=== PATIENT | female | born 1990 | race Caucasian/White ===

== ENCOUNTER 2018-06-01 19:40 | Emergency (ER) | END 2018-06-01 22:53 | disposition home or self-care (01) ==

== ENCOUNTER 2018-11-08 17:19 | Emergency (ER) | payer OTHER ==
[~2018-11-08] VITALS: Ht 157.5 cm; Wt 99.3 kg
[~2018-11-08 17:19] MED LIST: MELO15TA30 PO; TRAM50TA2 PO
[2018-11-08 17:37] VITALS: Ht 157.5 cm; Wt 99.3 kg
[2018-11-08] MEDS ORDERED: KETOROLAC 30 MG INJ IM STA ×2 (19:33→21:19)
[2018-11-08] MEDS ORDERED: ACET-141 PO (21:35)
[2018-11-08] MEDS ORDERED: IBUP-1542 PO (21:35)
--- NOTE | 2018-11-08 21:38 | ERD ---
ER Documentation Chief Complaint Chief Complaint B/L LEG PAIN X 4 DAYS , NO TRAUMA HPI 28-year-old female presents for bilateral leg pain times 4 days. She states that she has had these symptoms for about a year however is worsened for the last 4 days. The knee pain is diffuse. Rated 9 out of 10. States it is co nstant. She states it is affecting her gait a little bit. Pain is worse with walking. Denies any recent infections or fevers. ROS All systems reviewed and are negative except as per history of present illness. Medications Home Meds Active Scripts Acetaminophen* (Acetaminophen*) 500 MG Extra Strength Tablet, 500 MG PO Q4H PRN for PAIN AND OR ELEVATED TEMP, #30 TAB Prov:CAMMY LEE DO 11/08/18 Ibuprofen* (Motrin*) 600 Mg Tab, 600 MG PO Q6H PRN for PAIN, #30 TAB Prov:CAMMY LEE 11/08/18 Reported Medications Meloxicam* (Mobic*) 15 Mg Tablet, 15 MG PO DAILY 12/16/13 Tramadol HCl (Tramadol HCl) 50MG Tab, 50 MG PO Q6 PRN for PAIN, TAB 12/16/13 Allergies Allergies: Coded Allergies: No Known Allergy (Unverified , 10/18/14) PMhx/Soc Medical and Surgical Hx: pt denies Medical Hx, pt denies Surgical Hx History of Surgery: No Anesthesia Reaction: No Hx Neurological Disorder: No Hx Respiratory Disorders: No Hx Cardiac Disorders: No Hx Psychiatric Problems: No Hx Miscellaneous Medical Probl: No Hx Alcohol Use: No Hx Substance Use: No Hx Tobacco Use: No Smoking Status: Never smoker Physical Exam Vitals Vital Signs Date Temp Pulse Resp B/P (MAP) Pulse Ox O2 O2 Flow FiO2 Time Delivery Rate 11/08/18 98.9 85 18 108/68 99 Room Air 21:47 (81) 11/08/18 98.6 88 16 120/61 98 17:37 (80) Physical Exam Const: No acute distress Resp: Clear to auscultation bilaterally Cardio: Regular rate and rhythm, no murmurs, bilateral radial and dorsalis pedis pulses intact Skin: No petechiae or rashes Back: No midline or flank tenderness Ext: No cyanosis, or edema, is diffuse bilateral knee tenderness to palpation, 5 out of 5 muscle strength bilateral upper and lower extremities Neur: Awake and alert, bilateral upper and lower extremity sensation intact Psych: Normal Mood and Affect Results 24 hrs Laboratory Tests Test 11/08/18 19:46 11/08/18 21:01 POC Beta HCG, Qualitative POSITIVE NEGATIVE Urine Test NEGATIVE Current Medications Medications Dose Sig/Ryley Start Time Status Last (Trade) Ordered Route PRN Stop Time Admin Dose Reason Admin Ketorolac 30 mg ONCE STAT 11/08/18 DC Tromethamine IM 19:33 11/08/18 (Toradol) 19:34 Ketorolac 30 mg ONCE STAT 11/08/18 DC 11/08/18 Tromethamine IM 21:19 11/08/18 21:28 (Toradol) 21:21 Procedures/MDM Medical Decision Making: Differential diagnosis includes but not limited to fracture, dislocation, muscle strain, ligamentous sprain. Patient appeared well on physical exam. There was tenderness over the bilateral knees Patient was neurovascularly intact ED course: Patient was given Toradol. Symptoms improved with treatment. Imaging: X-ray Knee 3V Interpreted by me: Bones: No fracture Joints: No dislocation Foreign body: None Given the chronic nature of patient's bilateral knee pain patient advised that she he could benefit from physical therapy. Prescription(s): Patient given prescription for supportive medication(s). Patient advised to follow up with PCP in 1-2 days. Patient advised to return to ED for new or worsening symptoms. Patient stable on discharge from the ED. Disclaimer: Inadvertent spelling and grammatical errors are likely due to EHR/dictation software use and do not reflect on the overall quality of patient care. Also, please note that the electronic time recorded on this note does not necessarily reflect the actual time of the patient encounter. Departure Diagnosis: Primary Impression: Bilateral knee pain Condition: Fair Patient Instructions: Knee Pain, Uncertain Cause Additional Instructions: Call your primary care doctor TOMORROW for an appointment during the next 1-2 days.See the doctor sooner or return here if your condition worsens before your appointment time. Recommend follow up with PCP for referral to physical therapy. CAMMY LEE DO Nov 08, 2018 21:38
[2018-11-08 21:47] VITALS: BP 108/68; PULSE 85; RESP 18
== END 2018-11-08 21:48 | disposition home or self-care (01) ==
LOC: FTE 17:19
DX: M25.561 Pain in right knee (principal); M25.562 Pain in left knee
CPT/HCPCS: 73562; 81025; 84703; 96372; J1885; Z7502